=== PATIENT | female | born 1995 | race Two or more races ===

== ENCOUNTER 2017-10-06 23:57 | Emergency (ER) | payer SELFPAY ==
[~2017-10-06] VITALS: Ht 157.5 cm; Wt 77.1 kg
[~2017-10-06 23:57] MED LIST: CEPHALEXIN500 MG ORAL; NITROFURANTOIN100 M2 ORAL; SERTRALINE HCL50 MG ORAL
[2017-10-07] MEDS ORDERED: NKM (00:04)
[2017-10-07 00:06] VITALS: BP 130/74
--- NOTE | 2017-10-07 00:25 | Emergency Room Report ---
History of Present Illness General Chief Complaint: Female Urogenital Problems Source: Patient Present Illness HPI 22-year-old female with no medical problems comes ER with a complaint of having 4 day history of intermittent suprapubic discomfort, intermittent dysuria, urinary frequency, mild right low back pain, all symptoms worsened when she has to urinate. She also reports she's not had a normal period for a few months. She did check her urine test about a month ago and said it was negative. She denies vaginal rashes, ulcers, itching, abnormal discharge. She reports nausea but no vomiting, denies fevers, denies any other complaints and currently is not having any pain. Allergies: Coded Allergies: No Known Allergies (Unverified , 03/27/14) Patient History Past Medical History: see triage record Social History: Reports: smoking, alcohol use Last Menstrual Period: unk Reviewed Nursing Documentation: PMH: Agreed; PSxH: Agreed Nursing Documentation-PMH Past Medical History: No Stated History Review of Systems All Other Systems: negative except mentioned in HPI Physical Exam Vital Signs Date Time Temp Pulse Resp B/P (MAP) Pulse Ox O2 Delivery O2 Flow Rate FiO2 10/06/17 23:59 97.9 65 16 130/74 99 Room Air 97.9 Sp02 EP Interpretation: reviewed, normal General Appearance: no apparent distress, alert, non-toxic Head: normocephalic Eyes: bilateral eye normal inspection, bilateral eye PERRL, bilateral eye EOMI ENT: normal ENT inspection, hearing grossly normal, normal pharynx, no angioedema, normal voice, moist mucus membranes Neck: normal inspection, full range of motion, supple, supple/symm/no masses Respiratory: chest non-tender, lungs clear, normal breath sounds, chest symmetrical, palpation of chest normal Cardiovascular #1: normal peripheral pulses, regular rate, rhythm Cardiovascular #2: 2+ radial (R), 2+ radial (L) Gastrointestinal: normal inspection, non tender, soft, no mass, no guarding, no rebound Rectal: deferred Genitourinary: normal inspection, no CVA tenderness, adnexa normal, cervix normal - +CMT and yellowish discharge, c/w cervicitis, ext genitalia/vag normal , os closed, urethra normal, uterus normal Musculoskeletal: back normal, gait/station normal, normal range of motion, non- tender, no calf tenderness Neurologic: alert, responsive, digital developer III-XII nml as tested, motor strength/tone normal, sensory intact, speech normal Psychiatric: judgement/insight normal, memory normal, mood/affect normal, no suicidal/homicidal ideation Skin: normal color, no rash, warm/dry, normal turgor Lymphatic: no adenopathy Medical Decision Making Diagnostic Impression: Primary Impression: Cervicitis ER Course Patient with negative test, unremarkable urinalysis, pelvic examination done with nursing staff at the bedside, patient has examination consistent with cervicitis, treated with Rocephin and azithromycin, counseled on avoiding sexual intercourse for 2 weeks until all partners tested and treated for care and daily 2 weeks as well, as well as recommended she get outpatient HIV and syphilis testing, this discussion was had IN FRONT OF MOTHER , WHO AGREED AND ENSURED ME THAT SHE WOULD GET FOLLOW-UP. PATIENT ALSO UNDERSTOOD AND AGREED. Last Vital Signs Date Time Temp Pulse Resp B/P (MAP) Pulse Ox O2 Delivery O2 Flow Rate FiO2 10/07/17 00:06 97.9 65 16 130/74 99 Room Air 97.9 Disposition: HOME, SELF-CARE Condition: Stable Referrals: NOT CHOSEN LISA/,REFERRING (PCP) PAM GIBBONS M.D Oct 07, 2017 00:25
[2017-10-07 00:40] LABS: APPEARANCE,URINE CLEAR; BILIRUBIN, URINE NEGATIVE (NEGATIVE); COLOR,URINE PALE YELLOW; GLUCOSE, URINE (UA) NEGATIVE (NEGATIVE); KETONES,URINE NEGATIVE (NEGATIVE); LEUKOCYTE ESTERASE ,URINE NEGATIVE (NEGATIVE); NITRITE,URINE NEGATIVE (NEGATIVE); PH,URINE 6.5 (4.5-8.0); PROTEIN,URINE NEGATIVE (NEGATIVE); UROBILINOGEN,URINE NORMAL MG/DL (0.0-1.0)
[2017-10-07 01:27] LABS: BASOPHILS % (AUTO) 0.9 % (0.0-2.0); EOSINOPHILS % (AUTO) 2.1 % (0.0-3.0); HEMATOCRIT 39.1 % (37.0-47.0); HEMOGLOBIN 13.6 G/DL (12.0-16.0); LYMPHOCYTES % (AUTO) 29.7 % (20.0-45.0); MEAN CORPUSCULAR VOLUME 86 FL (80-99); MONOCYTES % (AUTO) 8.8 % (1.0-10.0); NEUTROPHILS % (AUTO) 58.5 % (45.0-75.0); PLATELET COUNT 292 K/UL (150-450); RED BLOOD COUNT 4.55 M/UL (4.20-5.40); WHITE BLOOD COUNT 6.6 K/UL (4.8-10.8)
[2017-10-07 01:30] LABS: ANION GAP 10 mmol/L (5-15); BLOOD UREA NITROGEN 5 mg/dL (7-18); CALCIUM 8.6 MG/DL (8.5-10.1); CARBON DIOXIDE 28 MMOL/L (21-32); CHLORIDE 102 MMOL/L (98-107); CREATININE 0.7 MG/DL (0.55-1.30); POTASSIUM 3.9 MMOL/L (3.5-5.1); SODIUM 139 MMOL/L (136-145)
[2017-10-07 01:40] LABS: ALANINE AMINOTRANSFERASE 21 U/L (12-78); ALBUMIN 3.7 G/DL (3.4-5.0); ALBUMIN/GLOBULIN RATIO 0.9 (1.0-2.7); ALKALINE PHOSPHATASE 77 U/L (46-116); ASPARTATE AMINO TRANSFERASE 16 U/L (15-37); BILIRUBIN,TOTAL 1.2 MG/DL (0.2-1.0)
[2017-10-07 01:45] LABS: BILIRUBIN,DIRECT 0.3 MG/DL (0.0-0.3)
[2017-10-07] MEDS ORDERED: Azithromycin 250mg tab ORAL ONE (01:45)
[2017-10-07] MEDS ORDERED: Lidocaine 1% MPF 10mg/ml 5ml INJ ONE (01:45)
[2017-10-07 01:58] VITALS: BP 130/74
[2017-10-08] MEDS ORDERED: CEPHALEXIN500 MG ORAL (13:47)
[2017-10-08] MEDS ORDERED: ZOFRAN4 MG ORAL (13:47)
== END 2017-10-07 01:58 | disposition home or self-care (01) ==
LOC: EMR 10-07 00:12
DX: N72 Inflammatory disease of cervix uteri (principal)
CPT/HCPCS: 36415; 80053; 81001; 81025; 82248; 83690; 85025; 87491; 87590; 96372; 99283; J0696

== ENCOUNTER 2017-10-08 10:10 | Emergency (ER) | payer SELFPAY ==
[~2017-10-08] VITALS: Ht 157.5 cm; Wt 77.1 kg
[~2017-10-08 10:10] MED LIST changes: +NKM
[2017-10-08 10:26] VITALS: BP 109/52
[2017-10-08 11:26] LABS: HEMATOCRIT 38.8 % (37.0-47.0); HEMOGLOBIN 13.5 G/DL (12.0-16.0); MEAN CORPUSCULAR VOLUME 87 FL (80-99); PLATELET COUNT 244 K/UL (150-450); RED BLOOD COUNT 4.45 M/UL (4.20-5.40); RED CELL DISTRIBUTION WIDTH 12.3 % (11.6-14.8); WHITE BLOOD COUNT 13.7 K/UL (4.8-10.8)
[2017-10-08 11:37] LABS: ANION GAP 7 mmol/L (5-15); BLOOD UREA NITROGEN 5 mg/dL (7-18); CALCIUM 8.7 MG/DL (8.5-10.1); CARBON DIOXIDE 26 MMOL/L (21-32); CHLORIDE 104 MMOL/L (98-107); CREATININE 0.7 MG/DL (0.55-1.30); SODIUM 137 MMOL/L (136-145)
[2017-10-08 11:43] LABS: INR 1.1 (0.9-1.1)
[2017-10-08 11:47] LABS: ALANINE AMINOTRANSFERASE 22 U/L (12-78); ALBUMIN 3.7 G/DL (3.4-5.0); ALBUMIN/GLOBULIN RATIO 0.9 (1.0-2.7); ALKALINE PHOSPHATASE 77 U/L (46-116); ASPARTATE AMINO TRANSFERASE 17 U/L (15-37); BILIRUBIN,TOTAL 1.6 MG/DL (0.2-1.0)
[2017-10-08 11:48] LABS: BILIRUBIN,DIRECT 0.2 MG/DL (0.0-0.3)
[2017-10-08 13:06] LABS: APPEARANCE,URINE SLIGHTLY CLOUDY; BILIRUBIN, URINE NEGATIVE (NEGATIVE); COLOR,URINE PALE YELLOW; GLUCOSE, URINE (UA) NEGATIVE (NEGATIVE); KETONES,URINE NEGATIVE (NEGATIVE); LEUKOCYTE ESTERASE ,URINE 2+ (NEGATIVE); NITRITE,URINE NEGATIVE (NEGATIVE); PH,URINE 6 (4.5-8.0); PROTEIN,URINE NEGATIVE (NEGATIVE); UROBILINOGEN,URINE NORMAL MG/DL (0.0-1.0)
[2017-10-08] MEDS ORDERED: CEPHALEXIN500 MG ORAL (13:47)
[2017-10-08] MEDS ORDERED: ZOFRAN4 MG ORAL (13:47)
[2017-10-08 14:11] VITALS: BP 109/52
--- NOTE | 2017-10-08 14:34 | Emergency Room Report ---
History of Present Illness General Chief Complaint: Pain Source: Patient Present Illness HPI Patient is a 22-year-old female who presented after increased lower abdominal pain. Patient reported having increased vomiting as well as diarrhea. Patient recently been treated for cervicitis and had been given Rocephin as well as azithromycin. Patient subsequently was noted to have worsening pain to the epigastric area associated with some nausea and vomiting. This had resolved spontaneously. Patient reports have increased difficulty with urination. Allergies: Coded Allergies: No Known Allergies (Unverified , 03/27/14) Patient History Last Menstrual Period: 05/2017 Now: No : 0 Para: 0 Reviewed Nursing Documentation: PMH: Agreed; PSxH: Agreed Nursing Documentation-PMH Past Medical History: No Stated History Review of Systems All Other Systems: negative except mentioned in HPI Physical Exam Vital Signs Date Time Temp Pulse Resp B/P (MAP) Pulse Ox O2 Delivery O2 Flow Rate FiO2 10/08/17 10:15 98.3 79 17 109/52 99 Room Air 98.2 Sp02 EP Interpretation: reviewed, normal General Appearance: normal inspection, well appearing, no apparent distress, alert, GCS 15 Head: atraumatic ENT: normal ENT inspection, hearing grossly normal, normal voice Neck: normal inspection, full range of motion, supple, no bony tend Respiratory: normal inspection, lungs clear, normal breath sounds, no respiratory distress, no retraction, no wheezing Cardiovascular #1: regular rate, rhythm, no edema Gastrointestinal: normal inspection, normal bowel sounds, soft, no guarding, no hernia, tenderness - left lower abdomen. Genitourinary: no CVA tenderness Musculoskeletal: normal inspection, back normal, normal range of motion Neurologic: normal inspection, alert, responsive, speech normal Psychiatric: normal inspection, judgement/insight normal, mood/affect normal Skin: normal inspection, normal color, no rash Medical Decision Making Diagnostic Impression: Primary Impression: Abdominal pain Additional Impression: Urinary tract infection ER Course Patient presented for abdominal pain. Differential diagnoses included pelvic inflammatory disease, to tubo-ovarian abscess, azithromycin reaction, ischemic bowel, appendicitis, perforated viscus, abdominal aortic aneurysm, inferior myocardial infarction, viral gastroenteritis Because of complexity of patient's case laboratory test were ordered. The patient noted to have somewhat of a white count was likely due to the patient's vomiting. Patient was given IV fluids with improvement in her symptoms. Patient was advised to follow-up with her [employer] MANAGER for recheck.The patient is advised to follow up with primary care doctor in 1-2 days. Patient is advised to return if any worsening condition or if any changes in status that are concerning. This report is dictated with [employer] purchasing clerk software which may occasionally lead to discrepancies related to use of this software. Labs Test 10/08/17 11:00 10/08/17 12:30 White Blood Count 13.7 K/UL (4.8-10.8) Red Blood Count 4.45 M/UL (4.20-5.40) Hemoglobin 13.5 G/DL (12.0-16.0) Hematocrit 38.8 % (37.0-47.0) Mean Corpuscular Volume 87 FL (80-99) Mean Corpuscular Hemoglobin 30.3 PG (27.0-31.0) Mean Corpuscular Hemoglobin Concent 34.8 G/DL (32.0-36.0) Red Cell Distribution Width 12.3 % (11.6-14.8) Platelet Count 244 K/UL (150-450) Mean Platelet Volume 8.1 FL (6.5-10.1) Neutrophils (%) (Auto) % (45.0-75.0) Lymphocytes (%) (Auto) % (20.0-45.0) Monocytes (%) (Auto) % (1.0-10.0) Eosinophils (%) (Auto) % (0.0-3.0) Basophils (%) (Auto) % (0.0-2.0) Differential Total Cells Counted 100 Neutrophils % (Manual) 87 % (45-75) Lymphocytes % (Manual) 7 % (20-45) Monocytes % (Manual) 5 % (1-10) Eosinophils % (Manual) 1 % (0-3) Basophils % (Manual) 0 % (0-2) Band Neutrophils 0 % (0-8) Platelet Estimate Adequate Platelet Morphology Normal Red Blood Cell Morphology Normal Prothrombin Time 11.2 SEC (9.30-11.50) Prothromb Time International Ratio 1.1 (0.9-1.1) Activated Partial Thromboplast Time 25 SEC (23-33) Sodium Level 137 MMOL/L (136-145) Potassium Level 4.0 MMOL/L (3.5-5.1) Chloride Level 104 MMOL/L (98-107) Carbon Dioxide Level 26 MMOL/L (21-32) Anion Gap 7 mmol/L (5-15) Blood Urea Nitrogen 5 mg/dL (7-18) Creatinine 0.7 MG/DL (0.55-1.30) Estimat Glomerular Filtration Rate > 60 mL/min (>60) Glucose Level 85 MG/DL (74-106) Calcium Level 8.7 MG/DL (8.5-10.1) Total Bilirubin 1.6 MG/DL (0.2-1.0) Direct Bilirubin 0.2 MG/DL (0.0-0.3) Aspartate Amino Transf (AST/SGOT) 17 U/L (15-37) Alanine Aminotransferase (ALT/SGPT) 22 U/L (12-78) Alkaline Phosphatase 77 U/L (46-116) Troponin I 0.000 ng/mL (0.000-0.056) Total Protein 7.7 G/DL (6.4-8.2) Albumin 3.7 G/DL (3.4-5.0) Globulin 4.0 g/dL Albumin/Globulin Ratio 0.9 (1.0-2.7) Lipase 203 U/L (73-393) Urine Color Pale yellow Urine Appearance Slightly cloudy Urine pH 6 (4.5-8.0) Urine Specific Hallam 1.015 (1.005-1.035) Urine Protein Negative (NEGATIVE) Urine Glucose (UA) Negative (NEGATIVE) Urine Ketones Negative (NEGATIVE) Urine Occult Blood 5+ (NEGATIVE) Urine Nitrite Negative (NEGATIVE) Urine Bilirubin Negative (NEGATIVE) Urine Urobilinogen Normal MG/DL (0.0-1.0) Urine Leukocyte Esterase 2+ (NEGATIVE) Urine RBC 20-30 /HPF (0 - 2) Urine WBC 2-4 /HPF (0 - 2) Urine Squamous Epithelial Cells Many /LPF (NONE/OCC) Urine Bacteria Few /HPF (NONE) Urine HCG, Qualitative Negative (NEGATIVE) Last Vital Signs Date Time Temp Pulse Resp B/P (MAP) Pulse Ox O2 Delivery O2 Flow Rate FiO2 10/08/17 14:11 98.2 86 17 109/52 99 Room Air 98.2 Status: improved Disposition: HOME, SELF-CARE Condition: Stable Scripts Ondansetron (Zofran) 4 Mg Tablet 4 MG ORAL Q6H PRN for Nausea & Vomiting, #30 TAB 0 Refills Prov: Leeroy Daniel MD 10/08/17 Cephalexin* (KEFLEX*) 500 Mg Capsule 500 MG ORAL EVERY 6 HOURS, #40 CAP Prov: Leeroy Daniel MD 10/08/17 Patient Instructions: Urinary Tract Infection Leeroy Daniel MD Oct 08, 2017 14:34
--- NOTE | 2017-10-12 15:28 | Cardiology Report ---
APPROVED REPORT EKG Measurement Heart [id number] Normal sinus rhythm with sinus arrhythmia Normal ECG
== END 2017-10-08 14:13 | disposition home or self-care (01) ==
LOC: EMR 10:55
DX: R10.9 Unspecified abdominal pain (principal); N39.0 Urinary tract infection, site not specified
CPT/HCPCS: 36415; 80053; 81003; 81025; 82248; 83690; 84484; 85007; 85025; 85610; 85730; 93005; 96360; 96361; 96374; 99284; J2405